=== PATIENT | male | born 1950 | race Caucasian/White ===

== ENCOUNTER 2019-09-24 14:05 | Outpatient (CLI) | payer MEDICARE, SELFPAY ==
--- NOTE | ~2019-09-24 | XR_ITS ---
XR chest 2V DATE: 09/24/2019 15:19 INDICATION: Preoperative evaluation. TECHNIQUE: PA and lateral views COMPARISON: 01/16/2013 PA and lateral chest FINDINGS: Normal heart size. No hilar or mediastinal enlargement. No pulmonary infiltrate or consolid ation, pleural effusion or pulmonary vascular congestion or pneumothorax. Included skeletal structures are unremarkable. IMPRESSION: No active cardiopulmonary disease Reviewed, dictated and finalized at location A. EAR SPECTROSCOPIST
[2019-09-24 15:10] LABS: Basophils Percent Auto 0.4 % (0.2-1.2); Eosinophils Absolute Auto 0.1 K/mm3 (0-0.3); Eosinophils Percent Auto 1.7 % (0-4.4); Hematocrit 43.8 % (42.0-52.0); Hemoglobin 14.5 g/dL (14.0-18.0); Immature Granulocyte Absolute 0.02 K/mm3 (0.00-0.031); Immature Granulocyte Percent A 0.3 % (0-0.5); Lymphocytes Absolute Auto 1.31 K/mm3 (0.9-3.2); Lymphocytes Percent Auto 17.6 % (18.3-44.2); Mean Corpuscular HGB Conc 33.1 g/dl (32-36); Mean Corpuscular Hemoglobin 29.2 pg (26-34); Mean Corpuscular Volume 88.1 fl (80-100); Mean Platelet Volume 10.8 fl (7.4-10.4); Monocytes Absolute Auto 0.8 K/mm3 (0.1-0.6); Monocytes Percent Auto 10.5 % (2.6-8.5); Neutrophils Absolute Auto 5.2 K/mm3 (1.3-6.7); Neutrophils Percent Auto 69.5 % (45.5-73.1); Platelet Count Result 204 k/mm3 (150-375); Red Blood Count 4.97 M/mm3 (4.6-6.20); Red Cell Distribution Width 12.6 % (11.5-14.5); White Blood Count 7.5 K/mm3 (4.5-10.0)
[2019-09-24 15:19] LABS: Hemoglobin A1C 5.3 % (<5.7); Urine Cotinine NEGATIVE
[2019-09-24 15:21] LABS: Albumin Level 3.9 g/dL (3.5-5.1); Blood Urea Nitrogen 23 mg/dL (9-20); Calcium 8.8 mg/dL (8.4-10.2); Carbon Dioxide 25 mmol/L (22-30); Chloride 105 mmol/L (98-107); Estimated Glomerular Filt Rate > 60; Glucose 100 mg/dL (75-110); Potassium 4.3 mmol/L (3.4-5.0); Sodium 139 mmol/L (137-145)
== END 2019-09-24 14:06 | disposition home or self-care (01) ==
PROVIDERS: PCP Family Medicine; Visit Provider Orthopaedic Surgery
DX: Z01.818 Encounter for other preprocedural examination (principal); M17.10 Unilateral primary osteoarthritis, unspecified knee
CPT/HCPCS: 36415; 71046; 80048; 80307; 82040; 83036; 85025; 87070

== ENCOUNTER → 2019-12-14 10:45 | Outpatient (CLI) | payer MEDICARE, SELFPAY ==
--- NOTE | ~2019-12-14 | MR_ITS ---
EXAMINATION: MR thoracic spine wo con DATE: 12/14/2019 12:02 INDICATION: Left face and neck tingling. TECHNIQUE: Magnetic resonance imaging (MRI) of the thoracic spine was performed without intravenous c ontrast. Sagittal localizer T1-weighted FSE of the cervical spine was obtained. Thoracic spine sequen joaquin included sagittal T2-weighted FSE, sagittal T1-weighted FSE, sagittal T2-weighted FS FSE, and axi al T2-weighted FSE. COMPARISON: Chest 2 views 09/24/2019 FINDINGS: There is 4 degrees levocurvature of upper thoracic spine. There is mild chronic anterior we dging of T6, T7, T8, T9, T12, L1, and L2 vertebral bodies. There are hemangiomas in T11, T12, and L2 vertebral bodies. There are Schmorl's nodes from T5-T6 through T12-L1. There is mildly decreased disc height from T3-T4 through T11-T12 and severely decreased disc height at T12-L1. The discs are bulgin g from T9-T10 through T12-L1 with mild central canal stenosis. There is multilevel facet joint osteoa rthritis, mild at most levels. There is moderate right neural foraminal stenosis at T10-T11 and T11-T 12. There is moderate left neural foraminal stenosis at T10-T11 and T11-T12. The spinal cord signal i ntensity is normal. IMPRESSION: 1. Moderate thoracic spondylosis. Reviewed, dictated and finalized at location A.
== END ==
PROVIDERS: PCP Family Medicine; Visit Provider Psychiatry & Neurology Neurology
DX: M47.814 Spondylosis without myelopathy or radiculopathy, thoracic region (principal)
CPT/HCPCS: 72146

== ENCOUNTER 2021-09-18 12:18 | Outpatient (CLI) | payer MEDICARE, SELFPAY ==
--- NOTE | ~2021-09-18 | XR_ITS ---
XR lumbar spine 6V w bending 09/18/2021 12:45 Indication: Low back pain Procedure: 7 views lumbar spine Comparison: No prior studies for comparison. Findings: There is disc narrowing at L3-4, L4-5 and L5-S1. There is moderate multilevel facet hypertr ophy. There is grade 1 degenerative spondylolisthesis at L4-5. No fracture, subluxation or dislocatio n. No significant alteration of alignment with flexion and extension. Impression: 1: Moderate lumbar spondylosis with grade 1 degenerative spondylolisthesis at L4-5. Reviewed, dictated and finalized at location A. GER LOSS PREVENTION Impression: 1: Moderate lumbar spondylosis with grade 1 degenerative spondylolisthesis at L 4-5.
== END 2021-09-18 12:19 | disposition home or self-care (01) ==
LOC: ANHIMG 12:20
PROVIDERS: PCP Family Medicine; Visit Provider Family Medicine
DX: M47.896 Other spondylosis, lumbar region (principal)
CPT/HCPCS: 72114

== ENCOUNTER 2021-10-30 00:25 | Day surgery (SDC) | payer MEDICARE, SELFPAY ==
[2021-10-18 15:09] VITALS: BMI 25.9
[2021-10-30 10:21] VITALS: BP 127/79; PULSE 68; RESP 16; TEMP 36.5; O2SAT 100
--- NOTE | 2021-10-30 10:21 | WPDANESEPPF ---
Anes - Initial Pre Proc Eval Procedure: Operation Date: 10/30/21 11:00 Proposed Procedures p Screening Colonoscopy - Car Harrington MD Date/Time: 10/30/21 10:21 Surgeon: Car Harrington MD Pre Op Diagnosis: family hx of colon ca, hx of colon polyps Patient Data Age: 71 Gender: M Height: 1.7 m Weight: 75 kg Allergies Allergy/AdvReac Type Severity Reaction Status Date / Time No Known Allergies Allergy Verified 10/30/21 10:20 Home Medications Medication Instructions Recorded Confirmed Type ICaps AREDS2 1 cap PO DAILY 09/24/19 10/18/21 History omega 5-mxi-olg-fish oil [Fish Oil] 1 cap PO DAILY 09/24/19 10/18/21 History levothyroxine 75 mcg PO DAILY 10/18/21 10/18/21 History metoprolol tartrate 25 mg PO BID 10/18/21 10/18/21 History simvastatin 20 mg PO DAILY 10/18/21 10/18/21 History Patient hx anesthesia problems: none Family hx anesthesia problems: none Results Review: All pre-operative results and documents have been reviewed as part of the pre-operative evaluation. [facility] Past Medical History Medical History Hypothyroid Mixed hyperlipidemia Paroxysmal atrial fibrillation ablation 2014 Scrotal varices Skin cancer, basal cell Tingling of face saw Dr garcia and mri of brain ordered Surgical History Surgical History History of total knee arthroplasty Family History Family History Mother Patient's mother is , Onset Age: 80 Father Family history of hearing loss, Onset Age: 80 Grandparent Family history of hearing loss Other Family history of congestive heart failure Social History Social History Smoking status: Never smoker Alcohol intake: current Drinks per week: 5 Substance use: never Living arrangements: with family Spiritual care concerns: No Agree to blood products: Yes Anes - Eval Final PreProcedure Day of Procedure 10/30/21 10:21 Patient weight: normal Heart: regular rate and rhythm Lungs: clear to auscultation and normal air movement Airway: Mallampati scale class II Neurological: alert and oriented Last oral intake: >/= 8 hours ASA classification: III Emergent: no Anesthetic plan: proceed Anesthesia type and monitoring: general GIVS Results Review: All pre-operative results and documents have been reviewed as part of the pre-operative evaluation. Informed Consent: The patient's anesthetic plan and its attendant risks and benefits were discussed with the patient/family/POA. Questions were solicited and answers provided to the satisfaction of the patient/family/POA.
[2021-10-30] MEDS: LACTATED RINGERS 1,000 ML 150 ML IV CONT (10:35)
--- NOTE | 2021-10-30 10:37 | WPDGICN ---
Assessment and Plan Assessment and plan (1) History of colon polyps: Code(s): Z86.010 - Personal history of colonic polyps Status: Acute Assessment and Plan: Patient has a history of colon polyps in 2016 plan is for surveillance colonoscopy at this time. Further recommendations will be given after endoscopy. GI Consult Note Consult date/time: 10/30/21 10:37 HPI: Jeffery Miranda is a 71 year old male Presents for screening colonoscopy. Patient's current weight appetite bowel movements are normal. He denies abdominal pain. He has had no bleeding. Patient does have a prior history of colon polyp removed from the colon 2015. Family history is significant his mother had stomach cancer. He is unaware of any colon cancer within the family. Review of Systems Review of Systems: All systems reviewed & are unremarkable except as noted in HPI and below PMFSH Past Medical History Medical History (Reviewed 09/18/21 @ 11:19 by Antonieta Villanueva [facility]) Hypothyroid Mixed hyperlipidemia Paroxysmal atrial fibrillation ablation 2014 Scrotal varices Skin cancer, basal cell Tingling of face saw Dr garcia and mri of brain ordered Surgical History Surgical History History of total knee arthroplasty Family History Family History Mother Patient's mother is , Onset Age: 80 Father Family history of hearing loss, Onset Age: 80 Grandparent Family history of hearing loss Other Family history of congestive heart failure Social History Social History Smoking status: Never smoker Alcohol intake: current Drinks per week: 5 Substance use: never Living arrangements: with family Spiritual care concerns: No Agree to blood products: Yes Meds Home Medications and Allergies Home Medications Medication Instructions Recorded Confirmed Type ICaps AREDS2 1 cap PO DAILY 09/24/19 10/18/21 History omega 9-dis-fhb-fish oil [Fish Oil] 1 cap PO DAILY 09/24/19 10/18/21 History levothyroxine 75 mcg PO DAILY 10/18/21 10/18/21 History metoprolol tartrate 25 mg PO BID 10/18/21 10/18/21 History simvastatin 20 mg PO DAILY 10/18/21 10/18/21 History Allergies Allergy/AdvReac Type Severity Reaction Status Date / Time No Known Allergies Allergy Verified 10/30/21 10:20 Vital Signs Vital Signs - 24 hr 10/30/21 10:21 Temperature 97.7 F Pulse Rate 68 Respiratory Rate 16 Blood Pressure 127/79 Pulse Oximetry 100 Exam Narrative: Physical exam reveals patient to be alert. Vital signs stable. HEENT exam is unremarkable. Patient is anicteric. Lungs are clear to auscultation and percussion. Heart is without murmur or extra sounds. Abdominal exam bowel sounds are present soft nontender with no organomegaly. Digital external rectal exam is normal.
[2021-10-30 11:30] VITALS: BP 91/59; PULSE 54; RESP 16; O2SAT 98
[2021-10-30 11:40] VITALS: BP 102/70; PULSE 56; RESP 18; O2SAT 100
[2021-10-30 11:50] VITALS: BP 106/73; PULSE 50; RESP 20; O2SAT 100
== END 2021-10-30 12:05 | disposition home or self-care (01) ==
PROVIDERS: PCP Family Medicine; Visit Provider Internal Medicine Gastroenterology
PROC: 0DJD8ZZ Inspection of Lower Intestinal Tract, Via Natural or Artificial Opening Endoscopic (ICD-10-PCS; CPT 45378; principal; 2021-10-30 11:00)
DX: Z12.11 Encounter for screening for malignant neoplasm of colon (principal); K64.8 Other hemorrhoids; Z86.010 Personal history of colon polyps; E03.9 Hypothyroidism, unspecified; E78.2 Mixed hyperlipidemia
CPT/HCPCS: G0105; J2704; J7120

== ENCOUNTER 2022-02-08 14:26 | Outpatient (CLI) | payer MEDICARE, SELFPAY ==
--- NOTE | ~2022-02-08 | XR_ITS ---
EXAMINATION: XR chest 2V DATE: 02/08/2022 14:45 INDICATION: 4 weeks of cough TECHNIQUE: PA and lateral views of the chest were obtained. COMPARISON: Chest radiograph dated 09/24/2019 FINDINGS: The lungs remain clear with no focal airspace opacities, pulmonary edema, pleural effusion or pneumot horax. The cardiomediastinal silhouette is normal. Mild thoracic spondylosis. Chronic minimal anterio r wedging at a couple levels at the thoracolumbar junction. IMPRESSION: 1. No acute cardiopulmonary disease. Reviewed, dictated and finalized at location A.
== END 2022-02-08 14:27 | disposition home or self-care (01) ==
PROVIDERS: PCP Family Medicine; Visit Provider Physician Assistant
DX: R05.9 Cough, unspecified (principal)
CPT/HCPCS: 71046

== ENCOUNTER → 2022-07-09 09:42 | Outpatient (CLI) | payer MEDICARE, SELFPAY ==
--- NOTE | ~2022-07-09 | MR_ITS ---
EXAMINATION: MR lumbar spine wo con DATE: 07/09/2022 10:10 INDICATION: Low back pain. TECHNIQUE: Magnetic resonance imaging (MRI) of the lumbar spine was performed without intravenous con trast. Sequences included sagittal T2-weighted FSE, sagittal T2-weighted FS FSE, sagittal T1-weighted FSE, and axial T2-weighted FSE. COMPARISON: Lumbar spine radiographs 09/18/2021 FINDINGS: There is 7 degrees dextrocurvature of lumbar spine. There is 7 mm anterolisthesis of L4 on L5. There is moderate lower thoracic spondylosis. There is moderately decreased disc height at L3-L4 and severely decreased disc height at L4-L5 with endplate remodeling. The distal spinal cord signal i ntensity is normal. The conus medullaris is at T12-L1. 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 The following disc levels are specifically discussed: L1-L2: The disc is mildly bulging. There is mild bilateral facet joint osteoarthritis. There is mild bilateral neural foraminal stenosis. There is no central canal stenosis. L2-L3: The disc is mildly bulging. There is moderate bilateral facet joint osteoarthritis. There is m ild bilateral neural foraminal stenosis. There is no central canal stenosis. L3-L4: The disc is bulging and has an annular fissure. There is mild right and severe left facet join t osteoarthritis. There is moderate bilateral neural foraminal stenosis. There is mild central canal stenosis. L4-L5: The disc is bulging and has an annular fissure. There is severe bilateral facet joint osteoart hritis. There is moderate bilateral neural foraminal stenosis. There is mild central canal stenosis. There is severe stenosis of right lateral recess. L5-S1: The disc does not extend beyond the endplate margin. There is moderate bilateral facet joint o steoarthritis. There is no neural foraminal stenosis. There is no central canal stenosis. IMPRESSION: 1. Severe lumbar spondylosis. Reviewed, dictated and finalized at location B.
== END ==
PROVIDERS: PCP Physician Assistant; Visit Provider Physician Assistant
DX: M47.896 Other spondylosis, lumbar region (principal)
CPT/HCPCS: 72148

== ENCOUNTER → 2023-05-14 14:48 | Outpatient (CLI) | payer MEDICARE, SELFPAY ==
--- NOTE | ~2023-05-14 | XR_ITS ---
EXAMINATION: XR chest 2V Exam Date/Time: 05/14/2023 14:51 CDT HISTORY: COUGH FOR 6 WEEKS Comparison: 02/08/2022, 09/24/2019, 01/16/2013. RESULT: Lines, tubes, and devices: None. Lungs and pleura: Clear. Cardiomediastinal silhouette: Stable. Other: No acute osseous or upper abdominal finding. IMPRESSION: No acute cardiopulmonary process. Reviewed, dictated and finalized at location K.
== END ==
PROVIDERS: PCP Emergency Medicine; Visit Provider Physician Assistant
DX: R05.9 Cough, unspecified (principal)
CPT/HCPCS: 71046

== ENCOUNTER 2023-08-05 15:11 | Outpatient (CLI) | payer MEDICARE, SELFPAY ==
--- NOTE | ~2023-08-05 | CT_ITS ---
EXAMINATION: CTA chest DATE: 08/05/2023 15:58 CDT INDICATION: Chest pain TECHNIQUE: Computed tomographic angiography (CTA) of the chest was performed with 100 mL Omnipaque-35 0 intravenous contrast. The dose-length product was 391.99 mGy-cm. Maximum intensity projection 3D-re constructions of the aorta and other arteries were constructed by the technologist on a separate work station. Automated exposure control and iterative reconstruction technique were employed. COMPARISON: None. FINDINGS: No evidence for aortic aneurysm or dissection. Small left pleural effusion. Borderline hear t size. No pericardial effusion. Upper abdomen is unremarkable. Celiac axis and SMA are widely patent . Renal arteries are partially visualized and patent. There is patchy groundglass opacification of th e left upper lobe, consistent with pneumonia. There is dependent atelectasis. Moderate thoracic spond ylosis. IMPRESSION: 1. Patchy groundglass opacities of the left upper lobe, consistent with pneumonia. 2: Small left pleural effusion with dependent atelectasis. Reviewed, dictated and finalized at location A. IMPRESSION: 1. Patchy groundglass opacities of the left upper lobe, consistent with pneumon ia. 2: Small left pleural effusion with dependent atelectasis.
== END 2023-08-05 15:12 | disposition home or self-care (01) ==
PROVIDERS: PCP Emergency Medicine; Visit Provider Emergency Medicine
DX: R07.9 Chest pain, unspecified (principal); J90 Pleural effusion, not elsewhere classified; R91.8 Other nonspecific abnormal finding of lung field
CPT/HCPCS: 71275; Q9967

== ENCOUNTER 2023-08-14 10:02 | Outpatient (CLI) | payer MEDICARE, SELFPAY ==
--- NOTE | ~2023-08-14 | NM_ITS ---
EXAMINATION: NM oswaldo stress w perfusion DATE: 08/14/2023 13:02 INDICATION: Chest pain TECHNIQUE: Rest images were obtained following intravenous administration of 9.8 mCi Tc99m tetrofosmi n (Myoview). The patient was infused intravenously with Lexiscan (Regadenoson). Then, 30.8 mCi Tc99m tetrofosmin (Myoview) was administered intravenously, and stress images were obtained. Data was recon structed into short axis and horizontal and vertical long axis SPECT images. Gated SPECT images were also obtained. COMPARISON: None. FINDINGS: There is no definite reversible or fixed perfusion abnormality to suggest ischemia or infar ction. There is normal left ventricular chamber size, wall motion and ejection fraction. Left ventr icular ejection fraction measures 53%. IMPRESSION: 1. Normal myocardial perfusion at rest and during stress. 2. Left ventricular ejection fraction measuring 53%. Reviewed, dictated and finalized at location A. ES INSPECTOR
--- NOTE | 2023-08-14 11:00 | EST_ITS ---
Patient Info Name: Jeffery Miranda Age: 73 years : 1950 Gender: Male Ht: 67 in Wt: 165 lbs BSA: 1.89 m2 HR: 55 bpm BP: 112 / 74 mmHg Heart Rhythm: Sinus Rhythm Exam Date: 08/14/2023 11:12 AM Exam Location: Echo Lab Patient Status: Outpatient Admit Date: 08/14/2023 Staff Ordering Physician: Chintan Blake MD Attending Provider: Chintan Blake MD Exercise Technologist: Zara Beasley CT Exercise Physician: Nahid Nicole DO Exam Type: CA stress oswaldo w NM Study Info Indications R07.89 - Other chest pain A regadenoson stress test was performed. Summary 1. 1. Negative lexiscan stress test for ischemic ST changes by ECG criteria. 2. 2. Stable hemodynamics throughout the test. 3. 3. Nuclear scan to follow and will be reported separately. Please correlate with it. 4. 4. Patient informed of the above results. Protocol: Lexiscan Stress ECG Details Stage: REST Duration (min): 8 min : 43 sec HR (bpm): 59 SBP (mmHg): 112 DBP (mmHg): 74 Stage: REST Duration (min): 9 min : 26 sec HR (bpm): 57 SBP (mmHg): 112 DBP (mmHg): 74 Stage: STAGE 1 Duration (min): 1 min : 0 sec HR (bpm): 67 SBP (mmHg): 121 DBP (mmHg): 67 Stage: RECOVERY Duration (min): 1 min : 0 sec HR (bpm): 78 SBP (mmHg): 121 DBP (mmHg): 67 Stage: RECOVERY Duration (min): 2 min : 0 sec HR (bpm): 73 SBP (mmHg): 121 DBP (mmHg): 67 Stage: RECOVERY Duration (min): 3 min : 0 sec HR (bpm): 65 SBP (mmHg): 113 DBP (mmHg): 68 Stage: RECOVERY Duration (min): 3 min : 9 sec HR (bpm): 67 SBP (mmHg): 113 DBP (mmHg): 68 Rest HR: 57 bpm Peak HR: 78 bpm Rest Sys BP: 112 mmHg Peak Sys BP: 121 mmHg Max Pred HR: 149 bpm % Max Pred HR: 52 % Target HR: 127 bpm Max RPP: 9,438 bpm*mmHg Termination Reason: Completed protocol Cardiac Symptoms: Shortness of breath Total Time: 1 min : 0 sec Rest Condon BP: 74 mmHg Peak Condon BP: 67 mmHg Total Dose: 0.4 mg Resting ECG Sinus bradycardia. Stress ECG No ST changes. Arrhythmias None. Report Signatures
== END 2023-08-14 10:03 | disposition home or self-care (01) ==
LOC: ANHCARD 10:04
PROVIDERS: PCP Emergency Medicine; Visit Provider Emergency Medicine
DX: R07.9 Chest pain, unspecified (principal)
CPT/HCPCS: 78452; 93017; A9502; J2785